=== PATIENT | female | born 1995 | race Caucasian/White ===

== ENCOUNTER 2022-11-08 08:12 | Emergency (ER) | payer MEDICAID, OTHER ==
[~2022-11-08] VITALS: Ht 173 cm; Wt 92.0 kg
[2022-11-08] MEDS ORDERED: PANTOPRAZOLE 40 MG (PROTONIX) VIAL IV ONE (08:30)
[2022-11-08] MEDS ORDERED: LACTATED RINGERS 1,000 ML IV STA ×2 (08:30→09:26)
[2022-11-08] MEDS ORDERED: ONDANSETRON 4 MG/2 ML (SDV) Z0FRAN IVP ONE ×2 (08:30→09:30)
[2022-11-08] MEDS ORDERED: KETOROLAC INJ 30 MG/ML VIAL IVP STA (08:30)
[2022-11-08] MEDS ORDERED: FAMOTIDINE 20 MG TABLET PO STA (08:30)
--- NOTE | 2022-11-08 08:38 | ED GI ---
General Chief Complaint: Abdominal/GI Problems Stated Complaint: POSS ALCOHOL POISONING Nursing Triage Note: PT STATES SHE DRANK A HALF A FIFTH BOTTLE OF RUM LAST NIGHT AND HAS NV, VOMITING AT TRIAGE, STOPPED DRINKING ABOUT 2230 Source of Information: Patient Exam Limitations: No Limitations History of Present Illness Date Seen by Provider: Nov 08, 2022 Time Seen by Provider: 08:23 Initial Comments Here with report of not feeling well this morning after she drank 1/5 of rum last night. She reports that she has had persistent nausea and vomiting and feels cold this morning but also feels achy. She states that she was just wanted has some fine. She did take 2 hits off a marijuana vape this morning and after did feel better and that did not make her feel better. She has vomited since arrival. Denies fever but does feel cold that she just overall does not feel well. Does have history of bipolar and autism. She does use vape nicotine as well. Does report that she does have history of gastritis and that her stomach gets upset when she drinks alcohol. Timing/Duration: 1-3 Hours Severity/Quality: Moderate Location: Generalized Abdomen Radiation: No Radiation Activities at Onset: None Modifying Factors: Worsens With Eating; Improves With Vomiting Associated Symptoms: No Chest Pain; Heartburn, Nausea/Vomiting; No Shortness of Air Allergies and Home Medications Allergies Coded Allergies: No Known Drug Allergies (Unverified , 11/08/22) Patient Home Medication List Home Medication List Reviewed: Yes Ondansetron (Ondansetron Odt) 4 Mg Tab.rapdis, 4 MG PO Q6H PRN for N AUSEA/VOMITING Prescribed by: ALYSSA DAUGHERTY on 11/08/22 1142 Pantoprazole Sodium (Pantoprazole Sodium) 40 Mg Tablet.dr, 40 MG PO DAILY Prescribed by: ALYSSA DAUGHERTY on 11/08/22 1142 Review of Systems Review of Systems Constitutional: see HPI, chills; No fever EENTM: No Symptoms Reported Respiratory: Denies Cough, Denies Shortness of Air Cardiovascular: No Symptoms Reported Gastrointestinal: Abdominal Pain (Generalized), Nausea, Vomiting Genitourinary: No Symptoms Reported Musculoskeletal: muscle pain Skin: No change in color, No lesions Past Bjtmbes-Lbcpcb-Urwctk Hx Patient Social History Use of E-Cig and/or Vaping dev: Yes E-Cig or Vaping type used: Nicotine, Marijuana Substance use?: Yes Substance type: Marijuana Alcohol Use?: Yes Alcohol type: Hard Liquor Alcohol Frequency: Couple times a week Past Medical History Surgery/Hospitalization HX: BI POLAR, AUTISM, C SECTION Surgeries: Yes Section Respiratory: No Cardiac: No Neurological: No Psychosocial: Yes Bipolar Family Medical History Reviewed Nursing Family Hx Physical Exam Vital Signs Vital Signs - First Documented 11/08/22 08:20 Temp 36.4 Pulse 81 Resp 20 B/P (MAP) 120/90 (100) Pulse Ox 100 O2 Delivery Room Air Capillary Refill : Height/Weight/BMI Height: '" Weight: lbs. oz. kg; 30.00 BMI Method: General Appearance: WD/WN, mild distress HEENT: PERRL/EOMI, pharynx normal Neck: full range of motion, supple Respiratory: lungs clear, normal breath sounds Cardiovascular: regular rate, rhythm, no murmur Gastrointestinal: non tender, soft Extremities: normal range of motion, no pedal edema Back: no CVA tenderness, no vertebral tenderness Neurologic/Psychiatric: alert, oriented x 3 Skin: normal color, warm/dry Progress/Results/Core Measures Results/Orders Lab Results Laboratory Tests Test 11/08/22 08:34 Range/Units White Blood Count 12.8 H 4.3-11.0 10^3/uL Red Blood Count 4.87 3.80-5.11 10^6/uL Hemoglobin 14.6 11.5-16.0 g/dL Hematocrit 45 35-52 % Mean Corpuscular Volume 93 80-99 fL Mean Corpuscular Hemoglobin 30 25-34 pg Mean Corpuscular Hemoglobin Concent 32 32-36 g/dL Red Cell Distribution Width 13.0 10.0-14.5 % Platelet Count 205 130-400 10^3/uL Mean Platelet Volume 10.9 9.0-12.2 fL Immature Granulocyte % (Auto) 0 % Neutrophils (%) (Auto) 84 H 42-75 % Lymphocytes (%) (Auto) 11 L 12-44 % Monocytes (%) (Auto) 5 0-12 % Eosinophils (%) (Auto) 0 0-10 % Basophils (%) (Auto) 0 0-10 % Neutrophils # (Auto) 10.7 H 1.8-7.8 10^3/uL Lymphocytes # (Auto) 1.3 1.0-4.0 10^3/uL Monocytes # (Auto) 0.6 0.0-1.0 10^3/uL Eosinophils # (Auto) 0.1 0.0-0.3 10^3/uL Basophils # (Auto) 0.0 0.0-0.1 10^3/uL Immature Granulocyte # (Auto) 0.1 0.0-0.1 10^3/uL Sodium Level 139 135-145 MMOL/L Potassium Level 4.1 3.6-5.0 MMOL/L Chloride Level 107 98-107 MMOL/L Carbon Dioxide Level 21 21-32 MMOL/L Anion Gap 11 5-14 MMOL/L Blood Urea Nitrogen 15 7-18 MG/DL Creatinine 0.82 0.60-1.30 MG/DL Estimat Glomerular Filtration Rate 101 BUN/Creatinine Ratio 18 Glucose Level 104 70-105 MG/DL Calcium Level 9.6 8.5-10.1 MG/DL Corrected Calcium 9.4 8.5-10.1 MG/DL Total Bilirubin 0.5 0.1-1.0 MG/DL Aspartate Amino Transf (AST/SGOT) 19 5-34 U/L Alanine Aminotransferase (ALT/SGPT) 19 0-55 U/L Alkaline Phosphatase 58 40-136 U/L Total Protein 7.2 6.4-8.2 GM/DL Albumin 4.3 3.2-4.5 GM/DL Serum Test, Qualitative NEGATIVE NEGATIVE Serum Alcohol < 10 <10 MG/DL My Orders Orders - ALYSSA DAUGHERTY MD Ondansetron Injection (Zofran Injectio (11/08/22 08:30) Famotidine Tablet (Famotidine Tablet) (11/08/22 08:30) Lactated Ringers (Lr 1000 Ml Iv Solution (11/08/22 08:30) Ed Iv/Invasive Line Start (11/08/22 08:30) Alcohol (11/08/22 08:30) Cbc With Automated Diff (11/08/22 08:30) Comprehensive Metabolic Panel (11/08/22 08:30) Hcg,Qualitative Serum (11/08/22 08:30) Ketorolac Injection (Ketorolac Injection (11/08/22 08:30) Pantoprazole Injection (Protonix Injecti (11/08/22 08:30) Ondansetron Injection (Zofran Injectio (11/08/22 09:30) Lactated Ringers (Lr 1000 Ml Iv Solution (11/08/22 09:26) Medications Given in ED Current Medications Medications Dose Ordered Sig/Jackson Route Start Time Stop Time Status Last Admin Dose Admin Ondansetron HCl 4 mg ONCE ONCE IVP 11/08/22 08:30 11/08/22 08:33 DC 11/08/22 08:43 4 MG Ondansetron HCl 4 mg ONCE ONCE IVP 11/08/22 09:30 11/08/22 09:31 DC 11/08/22 09:32 4 MG Pantoprazole 40 mg ONCE ONCE IV 11/08/22 08:30 11/08/22 08:33 DC 11/08/22 08:43 40 MG Vital Signs/I&O 11/08/22 11/08/22 08:20 08:43 Temp 36.4 36.4 Pulse 81 Resp 20 B/P (MAP) 120/90 (100) Pulse Ox 100 O2 Delivery Room Air Blood Pressure Mean: 100 Progress Progress Note : Progress Note Seen and evaluated. IV, labs including alcohol, CBC, CMP and hCG ordered. LR 1 L bolus, Protonix 40 mg IV, Zofran 4 mg IV, Toradol 30 mg IV and Pepcid 20 mg p.o. ordered. Monitor patient. Differential diagnosis includes dehydration, electrolyte abnormality, sequela of alcohol intoxication, gastritis 0928: Labs reviewed and CBC shows slightly elevated white count but normal hemoglobin and likely consistent with vomiting. CMP is normal and hCG is negative and alcohol is also negative. I have repeated LR 1 L bolus and repeated Zofran 4 mg IV for nausea. Patient mentioned that she is living with family members and she is having to sleep on the floor and she would like to stay until she feels better. We give additional fluids but patient does not have any admitting diagnoses at this point. Will likely DC home after fluids complete. 130: Fluids are complete. Patient still mentions a bit of nausea and states that she just does not want to go home because they have a toddler that we were alone and she has her child there that is sleeping on the couch so she will have to sleep on the floor. We will give her another hour to recuperate and then there are no indications for continued work-up, admission or otherwise. This was discussed with her. I will prescribe ondansetron and pantoprazole for nausea and upset stomach. 1252: Discharged home with return precautions. Patient verbalized understanding instructions and agreement with plan. Departure Impression Primary Impression: Nausea and vomiting Qualified Codes: R11.2 - Nausea with vomiting, unspecified Additional Impression: Hangover effect Qualified Codes: F10.120 - Alcohol abuse with intoxication, uncomplicated Disposition: 01 HOME, SELF-CARE Condition: Stable Departure-Patient Inst. Decision time for Depature: 12:51 Referrals: NO,LOCAL PHYSICIAN (PCP/Family) Primary Care Physician Patient Instructions: Effects of Alcohol on Your Health, Nausea and Vomiting, Adult (DC) Add. Discharge Instructions: All discharge instructions reviewed with patient and/or family. Voiced understanding. Medications as directed. With some rest today. You may take Tylenol/acetaminophen 1000 mg every 8 hours as needed for pain. You may take [id number] Pepcid or the generic famotidine 20 mg daily as needed for upset stomach. Take other medications as directed. You may follow-up with surgeon listed or of your choosing for recheck and further evaluation to evaluate your stomach as needed and that may include possible upper endoscopy if indicated. Return for worse pain, fever, vomiting, weakness, breathing problems or other concerns as needed. Scripts Pantoprazole Sodium (Pantoprazole Sodium) 40 Mg Tablet.dr 40 MG PO DAILY for 30 Days, #30 TAB Prov: ALYSSA DAUGHERTY MD 11/08/22 Ondansetron (Ondansetron Odt) 4 Mg Tab.rapdis 4 MG PO Q6H PRN for NAUSEA/VOMITING, #8 TAB 0 Refills Prov: ALYSSA DAUGHERTY MD 11/08/22 ALYSSA DAUGHERTY MD Nov 08, 2022 08:38
[2022-11-08 08:41] LABS: BASOPHILS % (AUTO) 0 % (0-10); EOSINOPHILS # (AUTO) 0.1 10^3/uL (0.0-0.3); EOSINOPHILS % (AUTO) 0 % (0-10); HEMATOCRIT 45 % (35-52); HEMOGLOBIN 14.6 g/dL (11.5-16.0); LYMPHOCYTES # (AUTO) 1.3 10^3/uL (1.0-4.0); LYMPHOCYTES % (AUTO) 11 % (12-44); MEAN CORPUSCULAR HEMOGLOBIN 30 pg (25-34); MEAN CORPUSCULAR HGB CONC 32 g/dL (32-36); MEAN CORPUSCULAR VOLUME 93 fL (80-99); MEAN PLATELET VOLUME 10.9 fL (9.0-12.2); MONOCYTES # (AUTO) 0.6 10^3/uL (0.0-1.0); MONOCYTES % (AUTO) 5 % (0-12); NEUTROPHILS # (AUTO) 10.7 10^3/uL (1.8-7.8); NEUTROPHILS % (AUTO) 84 % (42-75); PLATELET COUNT 205 10^3/uL (130-400); WHITE BLOOD COUNT 12.8 10^3/uL (4.3-11.0)
[2022-11-08 08:51] LABS: ALBUMIN 4.3 GM/DL (3.2-4.5); CHLORIDE 107 MMOL/L (98-107); POTASSIUM 4.1 MMOL/L (3.6-5.0); SODIUM 139 MMOL/L (135-145)
[2022-11-08 08:52] LABS: CALCIUM 9.6 MG/DL (8.5-10.1)
[2022-11-08 08:54] LABS: GLUCOSE 104 MG/DL (70-105); TOTAL PROTEIN 7.2 GM/DL (6.4-8.2)
[2022-11-08 08:55] LABS: BILIRUBIN,TOTAL 0.5 MG/DL (0.1-1.0); CARBON DIOXIDE 21 MMOL/L (21-32)
[2022-11-08 08:57] LABS: ALKALINE PHOSPHATASE 58 U/L (40-136); CREATININE SERUM 0.82 MG/DL (0.60-1.30); GFR ESTIMATED 101
[2022-11-08 08:58] LABS: BUN/CREATININE RATIO 18
[2022-11-08 09:00] LABS: ALANINE AMINOTRANSFERASE 19 U/L (0-55)
[2022-11-08] MEDS ORDERED: ONDA4TAB11 PO (11:42)
[2022-11-08] MEDS ORDERED: PANT40TA52 PO (11:42)
[2022-11-08 13:00] VITALS: BP 116/62
== END 2022-11-08 12:58 | disposition home or self-care (01) ==
LOC: ER 08:15
DX: F10.129 Alcohol abuse with intoxication, unspecified (principal); F17.290 Nicotine dependence, other tobacco product, uncomplicated; Y90.0 Blood alcohol level of less than 20 mg/100 ml
CPT/HCPCS: 36415; 80053; 80320; 84703; 85025